=== PATIENT | male | born 1975 | race Caucasian/White ===

== ENCOUNTER 2020-11-15 18:50 | Emergency (ER) | payer OTHER, SELFPAY ==
[2020-11-15 19:19] VITALS: BP 166/97; PULSE 72; RESP 20; TEMP 37.3; O2SAT 100
--- NOTE | 2020-11-15 19:42 | ED.GENADUL_ITS ---
Discharge Plan Disposition Patient Disposition: HOME Condition: Good Discharge Details Clinical Impression: Spasm of thoracic back muscle Primary Care Provider: [place] ED Provider: Demarco Conner Meds and New Rx's Prescriptions: New orphenadrine citrate 100 mg tablet extended release 100 mg PO BID Qty: 10 RF: 0 lidocaine 5 % adhesive patch,medicated 1 patch topical DAILY Qty: 15 RF: 0 Continued prazosin 2 MG capsule 8 mg PO HS RF: 0 ibuprofen 600 MG tablet 600 mg PO TID Qty: 30 RF: 0 Discharge Instructions Instructions: Muscle Spasm (ED) Additional Instructions: Activity as tolerated but try gentle stretching and heat to help with the spasm. Continue ibuprofen. Prescription for lidocaine patches and muscle relaxant at [facility]. Follow-up with primary care next week if no improvement. Return to ED for worsening pain, neurologic change, difficulty breathing, chest pain, other concerns. 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 Lungs are clear and saturations are normal. There is no pleuritic component to the pain. Pain is clearly worse with certain movements and positions. Spasm is present. He took ibuprofen earlier this evening. Will treat with IM Norflex and lidocaine patches and reevaluate. Patient reports some improvement with medications. Recommend heat and gentle stretching as well as continued use of ibuprofen, Norflex and lidocaine patches. Follow-up with primary care next week if not improving. Return to ED for shortness of breath, chest pain, new or worsening back pain, neurologic changes, other concerns. Medical Records Medical records reviewed: Yes I reviewed the patient's medical records. HPI General Mode of arrival: ambulatory . Date/Time Provider Initiated Documentation: 11/15/20 19:32 . Limitations to Documentation: no limitations . Information obtained by: patient and RN notes reviewed . HPI Narrative: Patient presents to ED with upper left-sided back pain and spasm that has been present for a couple of days. History of same with typically has lower back problems. 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 Pain is worse with movement. He is not short of breath. He has no chest pain. Denies fever or cough. Ibuprofen help yesterday not so much today. Has waves of spasm which makes it much worse. Related Data Home Medications Medication Instructions Recorded Confirmed ibuprofen 600 mg PO TID #30 tablet 07/07/15 11/15/20 prazosin 8 mg PO HS 07/07/15 11/15/20 lidocaine 1 patch TOPICAL DAILY #15 ea 11/15/20 orphenadrine citrate 100 mg PO BID #10 tab 11/15/20 Previous Rx's Medication Instructions Recorded ibuprofen 600 mg PO TID #30 tablet 07/07/15 lidocaine 1 patch TOPICAL DAILY #15 ea 11/15/20 orphenadrine citrate 100 mg PO BID #10 tab 11/15/20 Allergies Allergy/AdvReac Type Severity Reaction Status Date / Time No Known Allergies Allergy Unverified 04/29/17 19:48 General Stated Complaint: Nk/Back Pain CATALINA: 3 Review of Systems Narrative: As documented in HPI otherwise negative as below. Const: no fever, chills, weakness Resp: no cough, SOB, pleuritic pain CV: no CP, diaphoresis, edema, syncope GI: no abdominal pain, nausea, vomiting, diarrhea Neuro: no headache, numbness, focal weakness, confusion PFSH Medical History (Updated 11/16/20 @ 01:29 by Demarco Conner MD) Chronic lower back pain HTN (hypertension) Social History Smoking/Tobacco Use Status: Current every day Tobacco Type: cigarettes Smoking risk assessment performed?: Yes Alcohol Intake: current Alcohol Intake frequency: a few times a month Alcohol type: beer Drug use: Never Do you feel safe at home: Yes Do you feel safe in your relationship?: Yes Exam Narrative Exam Narrative: Const: WDWN male in NAD unless moves torso, then uncomfortable from pain/spasm HEENT: NC/AT. Normal facial exam. Eyes: Normal conjunctiva and sclera. Neck: Supple. Trachea midline. Lungs: Normal respiratory effort. Lungs are clear. Cor: RRR without murmur/gallop. Back: No midline pain/tenderness. Tender to palpation with spasm and decreased range of motion involving the left posterior thoracic/scapular region. Neuro: A+O x 3. Normal speech, mentation, gait. Cranial nerves II - XII grossly intact. No gross motor or sensory deficit. Ext: No C/C/E. Skin: Warm and dry without rash. Course Vital Signs Vital signs: Vital Signs Temperature 99.1 F 11/15/20 19:19 Pulse 72 11/15/20 19:19 Respiratory Rate 20 11/15/20 19:19 Blood Pressure 166/97 H 11/15/20 19:19 Pulse Oximetry 100 11/15/20 19:19 Temperature 99.1 F 11/15/20 19:19 Pulse 72 11/15/20 19:19 Respiratory Rate 20 11/15/20 19:19 Respiratory Effort Non-Labored 11/15/20 19:32 Blood Pressure 166/97 H 11/15/20 19:19 Blood Pressure Position Sitting 11/15/20 19:19 Pulse Oximetry 100 11/15/20 19:19 Oxygen Delivery Method Room Air 11/15/20 19:19 Oxygen Flow Rate 0 11/15/20 19:19 Pain Level 9 11/15/20 19:19
[2020-11-15] MEDS: Lidocaine 5% Patch 1 PATCH TP (20:05)
[2020-11-15] MEDS: Orphenadrine 60 MG/2 ML VIAL IM (20:07)
[2020-11-15 20:50] VITALS: BP 155/95; PULSE 60; RESP 16; O2SAT 100
== END 2020-11-15 23:49 | disposition home or self-care (01) ==
PROVIDERS: Emergency Provider Emergency Medicine
DX: M62.830 Muscle spasm of back (principal)
CPT/HCPCS: 96372; 99284; J2360; 99283

== ENCOUNTER 2023-05-07 10:20 | Emergency (ER) | payer OTHER, SELFPAY ==
[2023-05-07 10:21] VITALS: BP 147/95; PULSE 102; RESP 17; TEMP 36.8; O2SAT 99
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
[2023-05-07] MEDS: Acetaminophen 500 MG TAB 1000 MG PO (11:19)
== END 2023-05-07 13:04 | disposition home or self-care (01) ==
PROVIDERS: Emergency Provider Registered Nurse Emergency
DX: S42.022A Displaced fracture of shaft of left clavicle, initial encounter for closed fracture (principal); I10 Essential (primary) hypertension; F17.210 Nicotine dependence, cigarettes, uncomplicated; V03.10XA Pedestrian on foot injured in collision with car, pick-up truck or van in traffic accident, initial encounter
CPT/HCPCS: 99283; 71046; 73000; 73030

== ENCOUNTER 2023-05-12 11:49 | Outpatient (CLI) | payer OTHER, SELFPAY ==
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
== END 2023-05-12 11:50 | disposition home or self-care (01) ==
LOC: DIORS 11:49
PROVIDERS: Visit Provider Student in an Organized Health Care Education/Training Program
DX: S42.022D Displaced fracture of shaft of left clavicle, subsequent encounter for fracture with routine healing (principal); X58.XXXD Exposure to other specified factors, subsequent encounter
CPT/HCPCS: 73000

== ENCOUNTER 2023-05-26 15:45 | Outpatient (CLI) | payer OTHER, SELFPAY ==
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
== END 2023-05-26 15:46 | disposition home or self-care (01) ==
LOC: DIORS 15:46
PROVIDERS: Visit Provider Student in an Organized Health Care Education/Training Program
DX: S42.024D Nondisplaced fracture of shaft of right clavicle, subsequent encounter for fracture with routine healing (principal); X58.XXXD Exposure to other specified factors, subsequent encounter
CPT/HCPCS: 73000

== ENCOUNTER 2023-05-29 10:48 | Day surgery (SDC) | payer OTHER, SELFPAY ==
[2023-05-29] VITALS (13 sets, daily range): BP systolic 117–180; BP diastolic 83–121; PULSE 74–123; RESP 14–40; TEMP 36.2–36.5; O2SAT 94–99; BMI 22.5
--- NOTE | 2023-05-29 07:33 | W.PM.DSUDISC ---
Date of service: 05/29/23 Time of Service: 15:30 Discharge Plan Disposition Patient Disposition: Home Condition: Stable Discharge Details Attending Provider: Devang Nelson Primary Care Provider: [facility],[place] Home Meds and New Rx's Prescriptions: Continued prazosin 2 MG capsule 8 mg PO HS ibuprofen 600 MG tablet 600 mg PO TID Qty: 30 0RF Discharge Instructions Additional Instructions: Surgery: Left clavicle open reduction internal fixation Activity: Nonweightbearing left clavicle. Use sling when up and about or out of the home for about 4-6 weeks. Encouraged gentle range of motion about your shoulder. Full range of motion elbow, wrist, and hand. You may use your hand for light activities in front of the body. Prescriptions: None per patient preference. You may use [id number] acetaminophen and/or ibuprofen as needed for discomfort. Dressings: Leave dressing in place until follow-up. If it starts to peel off, you may remove it and leave the incision with skin glue open to air or cover with a new Band-Aid. Keep clean and dry at all times. Follow-up: 10-[address] Nelson You may take off the leg compression stockings this evening at home. You may also leave them on a few days longer if you have a history of leg swelling or edema. Let us know right away if you develop any redness, drainage, fevers, chest pain, or trouble breathing. Do not drink alcohol or drive for at least 24 hours after anesthesia. Please call the office during business hours with any questions or concerns. Discharge Orders Discharge Orders: Discharge Order (Routine); Ordered 05/29/23 Ordered By: Devang Nelson DS: Diagnosis Discharge Diagnosis (1) Closed displaced fracture of left clavicle: Status: Acute
--- NOTE | 2023-05-29 07:34 | W.PM.OP ---
Date of service: 05/29/23 Time of Service: 16:00 Operative Note Operative Note DATE OF PROCEDURE: 05/29/23 PRE-OP DIAGNOSIS: Left displaced clavicle fracture PROCEDURE: Left clavicle open reduction internal fixation, CPT #34059 SURGEON: Devang Nelson SUPERVISOR FABRICATION: Marco A Maria ANESTHESIA TYPE: Local By Surgeon, General LMA/ETT and Primary Nerve Block Refer to Anesthesia Record ESTIMATED BLOOD LOSS: 10 COMPLICATIONS: None Patient was transported to: PACU Patient's condition: stable Implants: Synthes 2.7mm VA LCP clavicle plate system Left CS2 with 4x 2.7mm locking screws and 1x 2.7mm cortex screws on each side of the fracture Indications: Please see complete medical record for details. Procedure Description: In the operating room, general anesthesia was induced. The patient was positioned supine on the operating room table. All bony prominences were well-padded. Preoperative antibiotics were administered. The clavicle was prepped and draped in the usual sterile fashion. The correct patient, procedure, and side of the procedure were all verified prior to incision. The planned incision was pre-injected with local anesthetic containing epinephrine. The fracture site was approached raising full-thickness flaps down to bone. The incision was extended medially laterally as necessary. Care was taken to preserve soft tissue attachments. The fracture ends were identified. There was significant early callus, which was surprising given the patient persistent pain and motion at the fracture site. Significant time was spent carefully exposing the segmental comminution and carefully freeing up the medial and lateral fracture ends. Once the fracture was able to be mobilized, bone forceps were used to provisionally obtain reduction. The medial and lateral bone ends did not have much fracture manning without the intercalary segmental large fragments, but these had fibrous tissue and bony changes from early healing so they were not amenable to lag screw fixation. An appropriately length precontoured superior plate was applied and rotated to best fit patient anatomy centered over the fracture site. It was compressed was compressed to bone with a cortex screw on either side of the fracture. Reduction and and plate position were confirmed. Medial of the plate was nicely compressed to the bone and the 4 locking positions were filled with appropriate length screws. A laterally a bone clamp and the distalmost hole were used to reduce a slight gapping between the plate and the bone. The remainder of the lateral screw holes were drilled and filled with locking screws. This cortex screw was then removed and replaced with a locking screw as well. The plate and fractures were all inspected and demonstrated excellent stability and fixation strength despite the large inferior and anterior segmental bone loss. AP, cephalic tilt, and [id number] fluoroscopy confirmed appropriate fracture reduction and hardware placement. The large inferior bone piece was then carefully raised superiorly and secured with suture tape cerclage around the fracture site and plate with a Nice knot. The last remaining large more anterior bone fragment was then secured to the anterior aspect of the fracture site into the plate with suture tape as well. Final x-rays showed good reduction of the segmental bone pieces to the construct. The wound was copiously irrigated with normal saline. Deep tissue was closed over the plate in a full-thickness fashion including the elevated periosteum and anterior attachments of the pectoralis and deltoid. Subcutaneous tissue was closed with buried interrupted 2-0 Monocryl. Subcuticular layer was closed using running 3-0 Monocryl. Skin glue was applied over the incision followed by a Mepilex Band-Aid. The patient awoke from anesthesia without complication and was transferred to the recovery room in a stable condition.
[2023-05-29] MEDS: Lactated Ringers 1,000 ML 30 ML IV (11:40)
--- NOTE | 2023-05-29 11:58 | W.ANESPRE ---
General Info Date of Service Date Performed: 05/29/23 Height: 5 ft 7 in Weight: 65.3 kg Body Mass Index (BMI): 22.5 Surgical Procedure: Operation Date: 05/29/23 13:25 Proposed Procedure Side Surgeon p Shoulder ORIF Clavicle Left Devang Nelson MD Meds Allergies and Home Medications Allergies Allergy/AdvReac Type Severity Reaction Status Date / Time adhesive tape Allergy Intermediate Pt. stated Verified 05/29/23 11:13 it burned his skin Home Medication Medication Instructions Recorded ibuprofen 600 mg tablet 600 mg PO TID #30 tabs 07/07/15 prazosin 2 mg capsule 8 mg PO HS 07/07/15 Current Visit Medications: Current Medications Generic Name Dose Route Start Last Admin Trade Name Freq PRN Reason Stop Dose Admin Ringer's Solution 1,000 mls @ 30 mls/hr 05/29/23 06:00 05/29/23 11:40 IV 06/27/23 23:59 30 mls/hr INFUSION BRUNA Administration Cefazolin Sodium/Dextrose 2 gm in 50 mls @ 100 mls/hr 05/29/23 06:00 Ancef Duplex IVPB 05/29/23 16:00 PREOP BRUNA Tranexamic Acid 1,000 mg/ 60 mls @ 360 mls/hr 05/29/23 06:00 Sodium Chloride IVPB 05/29/23 16:00 PREOP BRUNA IV Miscellaneous Supplies 1 each 05/29/23 06:00 Iv Access IV 06/27/23 23:59 DIRECTED BRUNA Oxycodone HCl 0 mg 05/29/23 07:32 Oxycodone 5 Mg Tab PO 06/28/23 07:31 Q3H PRN PRN Pain Sodium Chloride 0 ml 05/29/23 06:00 Normal Saline Flush 10 Ml Syr IV 06/27/23 23:59 PRN PRN Sodium Chloride 0 ml 05/29/23 06:00 Normal Saline 10 Ml Vial IJ 06/27/23 23:59 DIRECTED PRN Sterile Water 0 ml 05/29/23 06:00 Water,Injection,Sterile 10 Ml Vial IJ 06/27/23 23:59 DIRECTED PRN PFSH Active Problems Active Problems: Problem Status Onset Code Closed displaced fracture of left clavicle 05/07/23 S42.002A HTN (hypertension) I10 Chronic lower back pain M54.5, G89.29 Spasm of thoracic back muscle M62.830 Medical History Medical History (Updated 05/29/23 @ 11:18 by Belia Oquendo) Post traumatic stress disorder (PTSD) Medical History Comments:: pt. reports once he woke up and was insisting he had to pick kids up from school Surgical History Surgical History (Updated 05/29/23 @ 11:16 by Belia Oquendo) Hx of tonsillectomy Previous back surgery Tobacco Smoking/Tobacco Use Status: Current every day Tobacco Type: cigarettes Alcohol Alcohol Intake: current Alcohol intake frequency: a few times a month Alcohol type: beer Substance Use Substance use: Never Substance use type: does not use Details: alcohol: t-3, 2 beers. Smoke: on the way here Vital Signs and Lab Results Vital Signs Most Recent Vital Signs in EMR: Most Recent Vital Signs Temp Pulse Resp BP Pulse Ox 36.5 C 117 H 16 147/110 H 99 05/29/23 11:22 05/29/23 11:22 05/29/23 11:22 05/29/23 11:22 05/29/23 11:22 Lab Results Blood Type / Crossmatch: No Data to Display Complete Blood Count: No Data to Display Complete Metabolic Panel: No Data to Display Liver Function Panel: No Data to Display Coagulation Panel: No Data to Display Cardiac Panel: No Data to Display Arterial Blood Gas: No Data to Display Venous Blood Gas: No Data to Display Pancreas Panel: No Data to Display Thyroid Panel: No Data to Display Infectious Disease: No Data to Display Blood Cultures: No Data to Display Toxicology Panel: No Data to Display Anesthesia Assessment and Plan Anesthesia History Personal History: No History of Anesthesia Complications Family History: No Family History of Anesthesia Complications Exercise Tolerance Exercise Tolerance: Metabolic Equivalents>4 Pertinent Negatives Pertinent Negatives: No Symptoms of GERD, No Major Cardiovascular Symptoms or Complaints and No Major Pulmonary Symptoms or Complaints Cardiac & Pulmonary Exam Cardiac Exam: Normal S1/S2 Heart Sounds Pulmonary Exam: Clear Bilateral Breath Sounds Implantable Cardiac Device Does patient have a Pacemaker or an ICD?: No Airway Exam Known Difficult Airway: No Mallampati Class: 1 Mouth Opening: Normal (> 3cm) Thyromental Distance: Greater than 3 cm Neck Range of Motion: Full ROM Neck Circumference: Normal Teeth Condition: Normal Dentition ASA Classification ASA Score: ASA 2 Emergency Case?: No NPO Status NPO Status: NPO Clears >2 hours, Solids >8 hours Anesthesia Plan Resuscitation Status: Full Code Anesthesia Technique: General Anesthesia Airway Planned: Endotracheal Tube Pain Management: Surgeon and patient request nerve block Monitors Used: Standard Monitors
--- NOTE | 2023-05-29 13:15 | DI.RAD_ITS ---
Exam(s) XR CLAVICLE LT EXAM: XR CLAVICLE LT CLINICAL HISTORY: Left clavical fracture. TECHNIQUE: 2D digital imaging was performed. COMPARISON: No exams were available for comparison FINDINGS: Fluoroscopy provided during ORIF left clavicle fracture. See procedure report for details. Total fluoroscopy time 13 seconds. IMPRESSION: Radiation exposure index/cumulative dose: Figueroar= 0.67 mGy DATA REPOSITORY: RADIATION DOSE DELIVERED:
--- NOTE | 2023-05-29 13:44 | W.ANESNERVE ---
Nerve Block Single Injection Procedure Date and Time Date Performed: 05/29/23 Procedure Start: 13:11 Location Where Procedure Performed Procedure Location: Day Surgery Unit Reason Performed: Postoperative Analgesia Requesting Provider: Devang Nelson Timeout Performed Timeout Performed: Yes Monitoring Used ECG, Blood Pressure, SpO2 and See EMR for corresponding vital signs Sterility Sterility: Hand Hygiene, Surgical Cap, Surgical Mask, Sterile Gloves and Chlorhexidine Sedation Given During Procedure Sedation Given (Indicate Dose Given): No Sedation given Patient Mental Status Patient Mental Status: Awake Nerve Block 1st Nerve Block: Laterality: Left Block Type: Superficial Cervical Plexus Ultrasound Image Saved?: Yes Needle / Catheter Used: 100mm SonoPlex II Local Anesthetic Bolus (Indicate Dose Given): Lidocaine used for local infiltration of skin, Injected in 3-5ml increments after negative blood aspiration, Bupivacaine 0.5% Dose:: 5mL and Exparel Dose:: 5mL Additives (Indicate Dose Given): None Ultrasound: Sterile probe cover and gel used Nerve Stimulator: Not Used Paresthesia: None Procedure Tolerated: No Complications and Patient tolerated well Procedure Outcome: Successful Performed By: Olimpia Razo Supervised By: Shaggy Garsia
--- NOTE | 2023-05-29 13:45 | RT.EKG_ITS ---
APPROVED REPORT Exam: Resting ECG Reason for Exam: chest pain Patient Location: O HR:119 bpm ECG Measurements Heart Rate 119 AXIS NM 158 P 24 QRSd 90 QRS 31 QT 322 T 6 QTc 452 Conclusion Sinus tachycardia...rate> 99 Atrial premature complex...SV complex w/ short R-R interval Consider left ventricular hypertrophy...(R aVL+S V3) >2.80mV
--- NOTE | 2023-05-29 14:05 | PDOC.ANES ---
Date of service: 05/29/23 Time of Service: 14:05 Anesthesia Note Report Anesthesia Note: Patient with sudden onset right sided chest pain. Guarding, crouching on floor next to bed, reports unable to take a deep breath. Auscultated and while diminished, as patient not taking deep breathes, patient with clear oden. Dr. Nelson to bedside, evaluated. CXR ordered, EKG ordered. Reviewed results with Dr. Nelson. Ordered some medication for pain, DSU to give, will continue to monitor.
--- NOTE | 2023-05-29 14:08 | DI.RAD_ITS ---
Exam(s) XR PORTABLE CHEST AP EXAM: XR PORTABLE CHEST AP CLINICAL HISTORY: right sided chest pain TECHNIQUE: 2D digital imaging was performed of the chest. One image was obtained. An AP view was ob tained. COMPARISON: CR XR CHEST 2V PA LATERAL from 05/07/2023 FINDINGS: MEDIASTINUM: Normal. HEART: Normal. PULMONARY VASCULATURE: Normal. LUNGS: Clear. PLEURAL SPACE: No pleural effusion or pneumothorax. BONE:Within normal limits for the patient's age. There is again seen a displaced comminuted mid left clavicular fracture. OTHER FINDINGS:Normal. IMPRESSION: 1. No acute pulmonary findings. 2. Stable comminuted left mid clavicular fracture. DATA REPOSITORY: RADIATION DOSE DELIVERED:
[2023-05-29] MEDS: LORazepam 2 MG/ML VIAL 0.5 MG IVP (14:20)
[2023-05-29] MEDS: fentaNYL 100 MCG/2 ML VIAL IVP (14:21)
[2023-05-29] MEDS: ceFAZolin 2 GM/50 ML BAG IVPB (14:45)
--- NOTE | 2023-05-29 14:46 | SUR.PREOP ---
1350 Pt reported having severe chest pain and being OOB in room crouching with circulators present in room. Anesthesia providers Bhavesh Garsia CRNA and DONAVAN Gould were advised by circulators and were back in room with pt. Dr. Nelson arrived in room to assess pt as well. Bhavesh Garsia CRNA asked for pt to be placed on oxygen, ordered a STAT EKG and STAT portable chest x-ray. Radiology and Respiratory were called by nursing staff. RT and Rad arrived and STAT testing was completed. 1405 Dr. Nelson in room during EKG and reviewed at the time of testing. CXR reviewed by anesthesia. Bhavesh Garsia CRNA ordered Ativan 0.5mg IV and Fentanyl 25mcg IV for pain relief. IV Medications administered by Portia Buchanan RN, witnessed by Bety Frank RN. Pt reported some relief after IV medication adminstration. Dr. Nelson, Patient, and anesthesia decided to proceed with surgery. Industrial Fabric Cutter HAL Childers in room and took patient via stretcher to OR.
--- NOTE | 2023-05-29 18:22 | W.ANESPOSTOP ---
Postoperative Evaluation Date, Time and Location Date Performed: 05/29/23 Time Performed: 18:23 Patient Location: PACU Vital Signs Most Recent Imported Vital Signs: Most Recent Vital Signs Temp Pulse Resp BP Pulse Ox 36.5 C 78 14 121/87 996 H 05/29/23 17:50 05/29/23 17:50 05/29/23 17:50 05/29/23 17:50 05/29/23 17:50 Pain Score Most Recent Pain Score: Most Recent Pain Score Pain Level 0 05/29/23 17:50 Assessment Mental Status: Awake (Alert & Oriented to Patient Baseline) Airway and Respiratory Function: Patent airway with normal (patient baseline) respiratory exam Cardiovascular Function: Hemodynamically Stable Hydration Status: Adequately Hydrated Nausea & Vomiting: No Nausea or Vomiting Pain: Pt. Denies Any Pain Peripheral Nerve Block: Regional nerve block not resolved at time of post operative discharge
== END 2023-05-29 19:30 | disposition home or self-care (01) ==
LOC: SUR 10:49 → MS 18:21
PROVIDERS: Visit Provider Student in an Organized Health Care Education/Training Program
PROC: (CPT 23515; principal; 2023-05-29 13:15)
DX: S42.002A Fracture of unspecified part of left clavicle, initial encounter for closed fracture (principal); X58.XXXA Exposure to other specified factors, initial encounter; I10 Essential (primary) hypertension
CPT/HCPCS: 23515; 76000; 76942; 71045; 73000; 93005; 93010; C9290; J0131; J0665; J0690; J1100; J1200; J1885; J2060; J2405; J2704; J3010

== ENCOUNTER 2023-06-09 13:09 | Outpatient (CLI) | payer OTHER, SELFPAY ==
--- NOTE | 2023-06-09 10:15 | DI.RAD_ITS ---
Exam(s) XR CLAVICLE LT EXAM: XR CLAVICLE LT CLINICAL HISTORY: F/U CLAVICLE ORIF TECHNIQUE: 2D digital imaging was performed of the left clavicle. Two images were obtained. AP and axial views were obtained. COMPARISON: CR XR CLAVICLE LT from 05/26/2023 XA XR CLAVICLE LT from 05/29/2023 FINDINGS: BONES: There is again seen a sideplate and screws transfixing the left mid clavicular fracture. Ther e has been no change in alignment of the orthopedic hardware fracture components. No new fracture is seen. No bony destructive lesion is seen. JOINTS: No dislocation present. SOFT TISSUE: Normal. IMPRESSION: Stable left clavicular fracture and orthopedic hardware. DATA REPOSITORY: RADIATION DOSE DELIVERED:
== END 2023-06-09 13:10 | disposition home or self-care (01) ==
LOC: DIORS 13:09
PROVIDERS: Visit Provider Physician Assistant
DX: S42.025D Nondisplaced fracture of shaft of left clavicle, subsequent encounter for fracture with routine healing (principal); X58.XXXD Exposure to other specified factors, subsequent encounter
CPT/HCPCS: 73000

== ENCOUNTER 2023-07-14 15:53 | Outpatient (CLI) | payer OTHER, SELFPAY ==
--- NOTE | 2023-07-14 10:15 | DI.RAD_ITS ---
Exam(s) XR CLAVICLE LT EXAM: XR CLAVICLE LT INDICATION: F/U FRACTURE. COMPARISON: XA XR CLAVICLE LT from 05/29/2023 CR XR CLAVICLE LT from 06/09/2023 TECHNIQUE: 2D digital imaging was performed. Two views. FINDINGS: There has been continued healing at the clavicle fracture. No change in fracture or hardware alignme nt. DATA REPOSITORY: RADIATION DOSE DELIVERED:
== END 2023-07-14 15:54 | disposition home or self-care (01) ==
LOC: DIORS 15:54
PROVIDERS: Visit Provider Student in an Organized Health Care Education/Training Program
DX: S42.025D Nondisplaced fracture of shaft of left clavicle, subsequent encounter for fracture with routine healing (principal); X58.XXXD Exposure to other specified factors, subsequent encounter
CPT/HCPCS: 73000